=== PATIENT | female | born 1950 | race American Indian/Alaskan Native ===

== ENCOUNTER 2018-07-04 09:24 | Outpatient (CLI) | payer MEDICARE ==
--- NOTE | 2018-07-04 12:07 | Cat Scan Report ---
CT CHEST WITHOUT CONTRAST: HISTORY: Malignant neoplasm of lower lobe, unspecified bronchus or lung. COMPARISON: None at this facility. TECHNIQUE: Helical CT in 1.25mm intervals without IV contrast. Sagittal and coronal reformatted images. FINDINGS: Thyroid gland: The thyroid gland is normal size. Subtle 1.5 cm nodule in the right thyroid lobe is indeterminate. Tracheobronchial tree: Normal. Esophagus: Normal. Heart: Normal. Pericardium: Normal. Mediastinum: No mediastinal mass or adenopathy is identified. A few surgical clips are noted in the left side of the anterior mediastinum, correlate with history. Lung Williamson: Minor linear scarring or segmental atelectasis is noted in the lower lung zones. Scattered calcified granulomas are noted in the right upper lobe and left upper lobe. No suspicious noncalcified pulmonary nodule or mass. No infiltrate or interstitial lung disease. Pleural Spaces: Normal. Musculoskeletal: Moderate thoracolumbar spondylosis. No fracture or suspicious bony lesion is identified. IMPRESSION: Chronic granulomatous disease. No suspicious pulmonary nodule or mass is identified. Mild scarring or segmental atelectasis in the lower lung zones. Surgical changes in the anterior mediastinum. 1.5 cm ill-defined right thyroid lobe nodule. Consider followup with ultrasound.
== END 2018-07-04 09:25 | disposition home or self-care (01) ==
LOC: CT 09:24
PROVIDERS: ATTEND Internal Medicine Pulmonary Disease
DX: C34.30 Malignant neoplasm of lower lobe, unspecified bronchus or lung (principal); D71 Functional disorders of polymorphonuclear neutrophils; E04.1 Nontoxic single thyroid nodule; J98.11 Atelectasis; I11.0 Hypertensive heart disease with heart failure; I50.9 Heart failure, unspecified; E78.00 Pure hypercholesterolemia, unspecified; J44.9 Chronic obstructive pulmonary disease, unspecified; E66.9 Obesity, unspecified; Z98.890 Other specified postprocedural states
CPT/HCPCS: 71250